=== PATIENT | male | born 1950 | race African-American/Black ===

== ENCOUNTER 2018-05-06 06:39 | Emergency (ER) | payer OTHER ==
[~2018-05-06] VITALS: Ht 167.6 cm; Wt 66.2 kg
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
[2018-05-06] MEDS ORDERED: ONDANSETRON HCL/PF 4 MG/2 ML VIAL IVP ONE (07:00)
[2018-05-06] MEDS ORDERED: MORPHINE SULFATE INJ 2 MG/ML DISP.SYRIN IV ONE ×2 (07:00→11:00)
--- NOTE | 2018-05-06 07:05 | NUR ---
iv access started on RAC #[id number]. Blood drawn and sent with lab.
[2018-05-06 07:21] LABS: BASOPHILS % (AUTO) 0.3 % (0.0-2.0); EOSINOPHILS % (AUTO) 0.1 % (0.0-6.0); HEMATOCRIT 34 % (39-51); HEMOGLOBIN 11.1 g/dL (13.5-17.5); LYMPHOCYTES # (AUTO) 1.5 /CMM (0.8-4.8); LYMPHOCYTES % (AUTO) 13.5 % (20.0-44.0); MEAN CORPUSCULAR HGB CONC 33 g/dl (31.0-36.0); MEAN CORPUSCULAR VOLUME 94 fL (80-96); MONOCYTES # (AUTO) 0.7 /CMM (0.1-1.30); MONOCYTES % (AUTO) 6.8 % (2.0-12.0); NEUTROPHILS # (AUTO) 8.7 /CMM (1.8-8.9); NEUTROPHILS % (AUTO) 79.3 % (43.0-81.0); PLATELET COUNT (AUTO) 258 /CMM (150-450); RED BLOOD CELL COUNT(AUTO) 3.59 MIL/uL (4.5-6.0)
--- NOTE | 2018-05-06 07:21 | NUR ---
REPORT GIVEN TO RITA JOY FOR Pt's JT.
[2018-05-06] MEDS ORDERED: ONDANSETRON HCL/PF 4 MG/2 ML VIAL ONE (07:22)
[2018-05-06] MEDS ORDERED: MORPHINE SULFATE INJ 4 MG/ML DISP.SYRIN ONE ×2 (07:22→10:46)
--- NOTE | 2018-05-06 07:22 | NUR ---
RECEIVED REPORT FROM RITA PADILLA FOR JT.
[2018-05-06 07:23] LABS: CALCIUM, SERUM 9.1 mg/dL (8.5-10.1); CREATININE 1.5 mg/dL (0.6-1.3); POTASSIUM 4.4 mmol/L (3.5-5.1)
--- NOTE | 2018-05-06 07:34 | NUR ---
PT IS WHEELED TO CT SCAN VIA [facility].
--- NOTE | 2018-05-06 07:43 | NUR ---
PT IS BACK FROM THE CT SCAN AND AWAITING RESULT.
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
--- NOTE | 2018-05-06 08:42 | NUR ---
[facility] CALLED,PATIENT UNINSURED, MAC CALLED PER DR BUNCH
--- NOTE | 2018-05-06 08:56 | NUR ---
CALL BACK FROM [facility],PATIENT IS INSURED,FACESHEET AND CT FAXED TO [phone], REQUESTED BY YVONNE
[2018-05-06] MEDS ORDERED: CLINDAMYCIN 600 MG in IV D5W 100 ML IV ONE (09:00)
[2018-05-06] MEDS ORDERED: CITA20TA16 PO (09:26)
[2018-05-06] MEDS ORDERED: LISI40TA4 PO (09:26)
[2018-05-06] MEDS ORDERED: LEVO50TA8 PO (09:26)
[2018-05-06] MEDS ORDERED: ARIP15TA8 PO (09:26)
[2018-05-06] MEDS ORDERED: CARV6.252 PO (09:27)
[2018-05-06] MEDS ORDERED: IPRA12.9 IH (09:27)
[2018-05-06] MEDS ORDERED: ATOR10TA PO (09:27)
[2018-05-06] MEDS ORDERED: AMLO10TA6 PO (09:27)
[2018-05-06] MEDS ORDERED: BENZ0.5T43 PO (09:27)
[2018-05-06] MEDS ORDERED: HYDR25TA4 PO (09:27)
[2018-05-06] MEDS ORDERED: CLINDAMYCIN 600 MG in IV D5W 50 ML IV ONE (10:00)
--- NOTE | 2018-05-06 10:23 | NUR ---
[facility] CALLED,PRESENTED CASE TO [facility] AND CT/LABS FAXED TO [phone] REQUESTED
--- NOTE | 2018-05-06 11:14 | NUR ---
CALLED TRANSPORT ETA IS 1215 PER [place] TRIP NUMBER IS [id number]
--- NOTE | 2018-05-06 11:16 | NUR ---
CALL BACK FROM [facility], ACCEPTED AT [facility] ER BY [address] LEA[address] [place] [address], REPORT TO [phone], CHEN #[id number]
--- NOTE | 2018-05-06 11:37 | NUR ---
REPORT GIVEN TO RITA MAN OF [facility] ER.
--- NOTE | 2018-05-06 13:01 | NUR ---
GIVE REPORT TO DEEDEE CARPENTER [employer] FOR TRANSPORT TO [facility] ER.
[2018-05-06 13:02] VITALS: BP 156/92
== END 2018-05-06 13:12 | disposition short-term general hospital (02) ==
LOC: ER 06:43
DX: S02.40EA Zygomatic fracture, right side, initial encounter for closed fracture (principal); S02.641A Fracture of ramus of right mandible, initial encounter for closed fracture; I10 Essential (primary) hypertension; F29 Unspecified psychosis not due to a substance or known physiological condition; Z79.899 Other long term (current) drug therapy; Y04.0XXA Assault by unarmed brawl or fight, initial encounter; Y93.89 Activity, other specified; Y92.89 Other specified places as the place of occurrence of the external cause; Y99.8 Other external cause status
CPT/HCPCS: 36415; 70450-TC; 70486-TC; 80048-TC; 85025-TC; 85730-TC; A4606; J2270; J2405; J3490; J7060; Z7610